=== PATIENT | female | born 2000 | race Caucasian/White ===

== ENCOUNTER 2020-05-20 14:52 | Emergency (ER) | payer OTHER, BC | END 2020-05-20 17:50 | disposition home or self-care (01) | LOC: BURERS 14:52 | DX: S09.90XA Unspecified injury of head, initial encounter (principal); V57.5XXA Driver of pick-up truck or van injured in collision with fixed or stationary object in traffic accident, initial encounter | CPT/HCPCS: 70450; 72125 ==